=== PATIENT | female | born 1990 | race Caucasian/White ===

== ENCOUNTER 2022-09-25 12:10 | Emergency (ER) | payer BC, SELFPAY ==
[2022-09-25 12:13] VITALS: BP 145/99; PULSE 123; RESP 20; TEMP 36.5; O2SAT 98
[2022-09-25 12:31] LABS: Basophils Absolute Auto 0.1 K/mm3 (0.0-0.1); Basophils Percent Auto 0.6 % (0.2-1.2); Eosinophils Absolute Auto 0.1 K/mm3 (0-0.3); Eosinophils Percent Auto 1.3 % (0-4.4); Hematocrit 45.8 % (37.0-47.0); Hemoglobin 16.4 g/dL (12.0-15.0); Immature Granulocyte Absolute 0.02 K/mm3 (0.00-0.031); Immature Granulocyte Percent A 0.2 % (0-0.5); Lymphocytes Absolute Auto 2.48 K/mm3 (0.9-3.2); Lymphocytes Percent Auto 24.9 % (18.3-44.2); Mean Corpuscular HGB Conc 35.8 g/dl (32-36); Mean Corpuscular Hemoglobin 32.3 pg (26-34); Mean Corpuscular Volume 90.2 fl (80-100); Mean Platelet Volume 10.2 fl (7.4-10.4); Monocytes Absolute Auto 0.8 K/mm3 (0.1-0.6); Neutrophils Absolute Auto 6.5 K/mm3 (1.3-6.7); Platelet Count Result 459 k/mm3 (150-375); Red Blood Count 5.08 M/mm3 (4.2-5.4); Red Cell Distribution Width 11.8 % (11.5-14.5)
[2022-09-25 12:41] LABS: Alanine Aminotransferase 34 U/L (6-35); Albumin Level 4.9 g/dL (3.5-5.1); Alkaline Phosphatase 48 U/L (38-126); Anion Gap 17 mmol/L (8-16); Aspartate Amino Transferase 30 U/L (14-36); Bilirubin,Total 0.6 mg/dL (0.2-1.3); Blood Urea Nitrogen 10 mg/dL (7-17); Calcium 9.6 mg/dL (8.4-10.2); Carbon Dioxide 23 mmol/L (22-30); Chloride 96 mmol/L (98-107); Estimated CRCL calculation 79 ml/min; Estimated Glomerular Filt Rate > 60; Glucose 116 mg/dL (65-110); Lipase 312 U/L (23-300); Potassium 3.4 mmol/L (3.4-5.0); Sodium 136 mmol/L (137-145)
[2022-09-25 14:01] LABS: Appearance Urine Slightly Cloudy (Clear); Bilirubin Urine 3+ (Negative); Blood Urine Negative (Negative); Color Urine Dark Yellow (Yellow); Glucose Urine UA Negative (Negative); Ketones Urine 1+ mg/dL (Negative); Leukocyte Esterase Ur Negative LEU/UL (Negative); Nitrate Urine Negative (Negative); Protein Urine 2+ mg/dL (Negative); Specific Grav Ur >= 1.030 (1.001-1.035); Urobilinogen Urine 0.2 mg/dL (<2.0); pH Urine 5.5 (5.0-9.0)
[2022-09-25 14:04] LABS: Mucus Urine Heavy /lpf; Squamous Epithelial Cell Urine Many /hpf (Few)
[2022-09-25 14:05] LABS: Add Urine Microscopic? YES
[2022-09-25] MEDS: LACTATED RINGERS 1,000 ML 999 ML IV CONT ×2 (15:02→16:00)
--- NOTE | 2022-09-25 15:21 | ED.ABDPAIN ---
HPI - Abdominal Pain General Chief Complaint: Abdominal Pain Stated Complaint: ABD PAIN, HX CYCLIC VOMITING SYNDROME Time Seen by Provider: 09/25/22 14:55 History of Present Illness HPI narrative: Patient is a 32-year-old female here for evaluation of abdominal pain, nausea and vomiting for the past 3 days. Patient was diagnosed with cyclic vomiting syndrome several years back and has had intermittent bouts of flareups over the past several years. She states that she began to vomit about 3 weeks ago, was seen in the ED and discharged home after fluids and pain meds. She followed up with her primary doctor who found that her potassium was critically low and she was reportedly admitted to an outside hospital for 3 days for fluids and potassium repletion. She also had numerous CT scans, EGD and colonoscopy without obvious etiology for symptoms. Patient was feeling improved until 3 days ago when her symptoms returned. She does admit to marijuana use. Has not attempted any medicine for her symptoms. No fevers, chills, constipation or diarrhea. Related Data Allergies Allergy/AdvReac Type Severity Reaction Status Date / Time No Known Allergies Allergy Unknown Unverified 09/25/22 14:55 Review of Systems Review of Systems: Gen: Denies fevers or chills Eyes: Denies eye pain or visual change ENT: Denies congestion Respiratory: Denies shortness of breath or cough CV: Denies chest pain or palpitations GI: Denies abdominal pain nausea, emesis or diarrhea : denies burning, urgency, frequency or hematuria Musculoskeletal: Denies back pain or muscle pain Neuro: Denies numbness, tingling, weakness or focal weakness Skin: Denies rash Except as documented, all other systems reviewed and negative Exam Narrative: APPEARANCE: Well appearing, no pain in distress, well-nourished. Head: Normocephalic and atraumatic. EYES: PERRLA/EOMI, conjunctivae clear NOSE: No nasal drainage EARS: External ear normal in appearance THROAT: Oropharynx is clear. Mucous membranes are moist. NECK: Supple. No adenopathy, no masses. RESPIRATORY: Airway patent, respirations nonlabored. Clear to auscultation bilaterally, no rales, rhonchi, wheezing. CARDIOVASCULAR: Regular rate and rhythm without murmurs, rubs, or gallops. ABDOMINAL: No tenderness to palpation in abdomen. Normoactive bowel sounds. Soft, nondistended. No rebound tenderness or guarding. MUSCULOSKELETAL: Extremities are warm and well-perfused. Moves all extremities well. No edema. NEURO: Normal speech. No focal neurologic deficits. SKIN: Skin is warm and dry. No rashes. PSYCHIATRIC: Normal affect/mood. Course Vital Signs Vital signs: Vital Signs Temperature 97.7 F 09/25/22 12:13 Pulse Rate 123 H 09/25/22 12:13 Respiratory Rate 20 09/25/22 12:13 Blood Pressure 145/99 H 09/25/22 12:13 Pulse Oximetry 98 09/25/22 12:13 Oxygen Delivery Room Air 09/25/22 12:13 Temperature 97.7 F 09/25/22 12:13 Pulse Rate 78 09/25/22 17:17 Respiratory Rate 18 09/25/22 17:17 Blood Pressure 141/107 H 09/25/22 17:17 Pulse Oximetry 98 09/25/22 17:17 Oxygen Delivery Room Air 09/25/22 12:13 MDM - Abdominal Pain MDM Narrative Medical decision making narrative: 32-year-old female here for evaluation of nausea, vomiting and abdominal pain that appears chronic in nature and has been attributed to cyclic vomiting syndrome. She has had numerous CT scans and EGD per patient. Patient is slightly tachycardic upon arrival which improved with IV fluids. She has no leukocytosis but is hemoconcentrated. Lipase is slightly elevated at 312. Patient was given fluids, Zofran and pain meds in the ED with improvement of her symptoms and she was able to tolerate p.o. She was discharged home to follow-up with her primary care doctor. Will prescribe short course of Zofran for patient to take dicyclomine for cramping abdominal pain. Advised abstinence from marijuana. Lab Data Result diagrams: 11
[2022-09-25] MEDS: ONDANSETRON INJ 4 MG/2 ML VIAL IV PUSH (16:00)
[2022-09-25] MEDS: MORPHINE SULFATE (*CRX) 4 MG/ML INJ IV PUSH (16:01)
[2022-09-25 16:07] VITALS: BP 142/105; PULSE 100; RESP 18; O2SAT 100
[2022-09-25 17:17] VITALS: BP 141/107; PULSE 78; RESP 18; O2SAT 98
== END 2022-09-25 17:33 | disposition home or self-care (01) ==
PROVIDERS: Emergency Medicine; Emergency Provider Physician Assistant; PCP Family Medicine
DX: R11.15 Cyclical vomiting syndrome unrelated to migraine (principal)
CPT/HCPCS: 36415; 80053; 81001; 83690; 85025; 96361; 96374; 96375; 99284; J2270; J2405; J7120

== ENCOUNTER 2023-07-06 10:04 | Outpatient (CLI) | payer BC, SELFPAY ==
--- NOTE | ~2023-07-06 | XR_ITS ---
EXAMINATION: XR finger 1st RT min 2V INDICATION: Right first finger pain TECHNIQUE: Three views of the right first finger are obtained. COMPARISON: None available FINDINGS: There is subtle irregularity in the distal neck of the first metacarpal. There also appears to be minimal adjacent calcified callus and soft tissue swelling. The joint spaces are normal. IMPRESSION: 1. Probable healing fracture in the distal aspect of the first metacarpal. Reviewed, dictated and finalized at location L.
== END 2023-07-06 10:05 | disposition home or self-care (01) ==
LOC: CHSIMG 10:09
PROVIDERS: PCP Registered Nurse; Visit Provider Physician Assistant
DX: M79.644 Pain in right finger(s) (principal)
CPT/HCPCS: 73140